=== PATIENT | female | born 1950 | race African-American/Black ===

== ENCOUNTER 2018-08-21 12:25 | Emergency (ER) | payer MEDICARE, MEDICAID ==
[2018-08-21 12:35] VITALS: BP 154/69
--- NOTE | 2018-08-21 13:48 | ER Document Report ---
HPI - HPI Patient complains to provider of: left foot pain, swelling, itching, redness, insect bites Time Seen by Provider: 08/21/18 13:47 Onset: Yesterday Onset/Duration: Sudden Quality of pain: Achy Severity: Mild Pain Level: 2 Context: 67 yr old female pt, with the listed pmh, here for left foot pain/swelling/redness/itching since last night. states she got bit by some bugs several days ago and has been scratching the area and it has since become more red, swollen, and painful and she is concerned it may be getting infected so she came in. she also states yesterday she accidentally dropped an unlit, not hot, citronella candle on her foot and has had pain since and is requesting imaging. no numbness, tingling, weakness, or pain anywhere else. no trouble breathing, swallowing, or handling secretions. no drainage. no fevers. she is able to walk. no surgeries on this foot. no hx of gout. no other complaints at this time. she hasn't sought care until now. no recent abx or steroids. no hx of asthma or diabetes. Exacerbated by: Movement Relieved by: Remaining still Similar symptoms previously: No Recently seen / treated by doctor: No - ROS Systems Reviewed and Negative: Yes All other systems reviewed and negative - to incude 10, unless mentioned in the hpi Past Medical History - General Information source: Patient - Social History Smoking Status: Unknown if Ever Smoked Frequency of alcohol use: unknown Drug Abuse: Other - unknown Family History: Reviewed & Not Pertinent Patient has suicidal ideation: No Patient has homicidal ideation: No - Immunizations Immunizations up to date: Yes Vertical Provider Document - CONSTITUTIONAL Notes: GENERAL_APPEARANCE: alert and oriented x 3, mood and affect wnl, cooperative, no obvious discomfort. Pleasant, obese elderly female, smiling, speaking in full sentences, in no sign of pain or resp distress, easily sitting up VITALS: reviewed, see vital signs table. HEAD: no_swelling\tenderness on the head, normocephalic, atraumatic, ENT: perrl, eomi, normal pharynx. no nasal drainage. normal speech. no tongue or lip swelling. uvula midline. NECK: supple, no_neck_tenderness. full rom and full strength. HEART: RRR LUNGS: CTAB, good air exchange diffusely BACK: no_back_tenderness EXTREMITIES: good pulse in all extremities, left foot: has mild erythema, mild swelling, mild tenderness mostly over the dorsum. there are some excoriated lesions on the foot that appear like insect bites the pt has scratched with some mild surrounding swelling. appears like a mild localized allergic reaction with possible secondary cellulitis developing, and no other abrasions\lacerations other than as noted. Full rom and full strength. slight antalgic gait secondary to left foot pain only. 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 brisk cap refill. no other shortening or rotation of the limbs or obvious deformities to suggest trauma unless otherwise noted. no other swelling or ttp. no foot drop. no sign of gout. no sign of septic joint or compartment syndrome. neg cammy sign. neg chinchilla squeeze. SKIN: warm, dry, good_color. no rash. no other grossly visible overlying skin changes to suggest trauma NEURO: cerebellar function intact, motor_intact and sensory_intact in injured_extremity. cranial nerves 2-12 intact - INFECTION CONTROL TRAVEL OUTSIDE OF THE [place] IN LAST 30 DAYS: No Course - Re-evaluation Re-evalutation: pt here for left foot pain/swelling/redness/itching since last night. states she got bit by some bugs several days ago and has been scratching the area and it has since become more red, swollen, and painful and she is concerned it may be getting infected. she also states yesterday she accidentally dropped an unlit, not hot, citronella candle on her foot and has had pain since and is requesting imaging. her left foot xr was neg per rad and reviewed by myself. she was given tylenol here for pain with improvement of her sx. her tdap is utd. no sign of anaphylaxis. no trouble breathing or swallowing. no facial swelling. her left foot appears to have some bug bites and it is hard to discern secondary to her scratching if this is just a localized allergic reaction to the insect bites vs a secondary cellultis, so will cover for both with a few days of prednisone and also bactrim. she does request crutches stating the foot is painful to walk on. she was provided these and asked to remain nonweightbearing for the next few days then weightbearing as tolerated or until seen by pcp. advised wound care and sx care. otc meds for pain. benadryl prn itching. she was given first doses of bactrim and prednisone here. advised to avoid scratching the areas. rice therapy. hydrocortisone/neosporin to the areas. no sign of gout, septic jt, or compartment syndrome. advised to f/u with pcp in 1-2 days. return for any worsening symptoms. vss. well appearing. satting well on ra. neurononfocal. pt understands and agrees to plan. On reexam, pt improved with tx listed. remained stable. nontoxic. well appearing. pain controlled. tolerating po. requesting to go home. Documentation achieved through voice recording which my lead to some occasional accidental typographical errors. Extensive efforts have been made to proof read documentation to make sure these are the least as possible. Category Date Time Status Crutches (ED) NOW Care 08/21/18 15:40 Active FOOT LEFT COMPLETE [RAD] Stat Exams 08/21/18 14:24 Completed Acetaminophen [Tylenol 325 mg Tablet] Med 08/21/18 14:25 Discontinued 975 mg PO NOW ONE Prednisone [Deltasone 20 mg Tablet] Med 08/21/18 14:25 Discontinued 40 mg PO NOW ONE Sulfamethoxazole/Trimethoprim [Septra-Ds 800-160 mg Med 08/21/18 14:26 Discontinued Tablet] 1 tab PO NOW ONE - Vital Signs Vital signs: Temp Pulse Resp BP Pulse Ox 98.7 F 92 16 154/69 H 94 08/21/18 12:32 08/21/18 12:32 08/21/18 12:32 08/21/18 12:32 08/21/18 12:32 Temp Pulse Resp BP Pulse Ox 08/21/18 12:32 98.7 F 92 16 154/69 H 94 - Diagnostic Test Radiology reviewed: Image reviewed, Reports reviewed Radiology results interpreted by me: Foot X-Ray 08/21/18 14:24 IMPRESSION: Soft tissue swelling, no acute fracture Discharge - Discharge Clinical Impression: Cellulitis of left foot, Allergic reaction to insect bite Injury of left foot Qualifiers: Encounter type: initial encounter Qualified Code(s): S99.922A - Unspecified injury of left foot, initial encounter Condition: Stable Disposition: HOME, SELF-CARE Instructions: Cellulitis ([facility]), Swollen Insect Bite or Sting ([facility]) Additional Instructions: Follow-up with PCP 1 to 2 days. Return for any worsening symptoms. Wound care as discussed. Ice to the area. Take the medications as prescribed. Use [id number] hydrocortisone cream to the area. benadryl as needed for any itching. stop scratching the areas. Elevate the foot. Tylenol for any pain. Prescriptions: Prednisone [Deltasone 10 mg Tablet] 40 mg PO DAILY 5 Days #20 tablet Sulfamethoxazole/Trimethoprim [Bactrim Ds Tablet] 1 each PO BID #14 tablet
[2018-08-21] MEDS ORDERED: PREDNISONE 20 MG TABLET PO ONE (14:25)
[2018-08-21] MEDS ORDERED: ACETAMINOPHEN 325 MG TABLET PO ONE (14:25)
[2018-08-21] MEDS ORDERED: SULFAMETHOXAZOLE/TRIMETHOPRIM 800-160 MG TABLET PO ONE (14:26)
--- NOTE | 2018-08-21 15:06 | RADIOLOGY REPORT (SQ) ---
EXAM DESCRIPTION: FOOT LEFT COMPLETE COMPLETED DATE/TIME: 08/21/2018 2:57 pm REASON FOR STUDY: dropped candle on foot yest, pain/swelling on top COMPARISON: None. NUMBER OF VIEWS: Three views. TECHNIQUE: AP, lateral and oblique radiographic images acquired of the left foot. LIMITATIONS: None. FINDINGS: MINERALIZATION: Normal. BONES: No acute fracture or dislocation. No worrisome bone lesions. 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 Mild focal soft tissue swelling. No fracture. SOFT TISSUES: Dorsum left foot soft tissue swelling, great toe soft tissue swelling. No foreign body . OTHER: Plantar calcaneal spur. IMPRESSION: Soft tissue swelling, no acute fracture TECHNICAL DOCUMENTATION: JOB ID: [id number]- All Rights Reserved Reading location - IP/workstation name: [email or web address]
== END 2018-08-21 15:58 | disposition home or self-care (01) ==
LOC: ER 12:25
DX: L03.116 Cellulitis of left lower limb (principal); T14.8XXA Other injury of unspecified body region, initial encounter; W57.XXXA Bitten or stung by nonvenomous insect and other nonvenomous arthropods, initial encounter; S99.922A Unspecified injury of left foot, initial encounter; W20.8XXA Other cause of strike by thrown, projected or falling object, initial encounter
CPT/HCPCS: 99283; 73630; A9270 ×3; J7512